=== PATIENT | female | born 1960 | race Caucasian/White ===

== ENCOUNTER 2021-12-25 20:13 | Emergency (ER) | payer OTHER ==
[2021-12-25 20:17] VITALS: BP 157/82; PULSE 74; RESP 18; TEMP 97.5; BMI 27.7
[2021-12-25] MEDS ORDERED: DIPHTH,PERTUSS(ACELL),TET 0.5 ML DISP.SYRIN IM ONE ×2 (21:13→21:16)
[2021-12-25] MEDS ORDERED: metroNIDAZOLE 500 MG TABLET PO ONE (21:13)
[2021-12-25] MEDS ORDERED: DOXYCYCLINE HYCLATE 100 MG CAPSULE PO ONE ×2 (21:13→21:16)
[2021-12-25] MEDS ORDERED: metroNIDAZOLE 250 MG TABLET ONE (21:16)
== END 2021-12-25 21:25 | disposition home or self-care (01) ==
LOC: JERFT 20:13 → JER 20:13 → JERFT 21:25
PROC: 3E0234Z Introduction of Serum, Toxoid and Vaccine into Muscle, Percutaneous Approach (ICD-10-PCS; principal; 2021-12-25)
DX: S91.052A Open bite, left ankle, initial encounter (principal); W54.0XXA Bitten by dog, initial encounter
CPT/HCPCS: 90471; 90715; 99283-25

== ENCOUNTER 2022-11-29 10:11 | Emergency (ER) | payer OTHER ==
[2022-11-29 10:22] VITALS: BP 131/75; PULSE 90; RESP 20; TEMP 98; BMI 27.8
[2022-11-29] MEDS ORDERED: CEFTRIAXONE 2,000 MG in DEXTROSE 5%-WATER - 50 ML IVPB ONE (11:26)
[2022-11-29] MEDS ORDERED: metroNIDAZOLE 500 MG TABLET PO ONE (11:27)
[2022-11-29] MEDS ORDERED: ACETAMINOPHEN 500 MG TABLET (FP) PO ONE (11:27)
[2022-11-29 11:37] LABS: BASO % 0.8 % (0-2.0); EOS % 1.5 % (0-4.5); HEMATOCRIT 38.8 % (32.4-45.2); HEMOGLOBIN 13.8 GM/dL (10.7-15.3); LYMPH % 24.5 % (8-40); MCH 30.4 pg (25.7-33.7); MCHC 35.5 g/dl (32.0-36.0); MEAN CELL VOLUME 85.7 fl (80-96); MEAN PLT VOLUME 8.3 fl (7.5-11.1); MONO % 7.4 % (3.8-10.2); NEUT % 65.8 % (42.8-82.8); PLATELET COUNT 302 10^3/uL (134-434); RBC 4.53 M/mm3 (3.60-5.2); RDW 13.5 % (11.6-15.6); WHITE BLOOD COUNT 8.6 K/mm3 (4.0-10.0)
[2022-11-29] MEDS ORDERED: metroNIDAZOLE 250 MG TABLET ONE (11:40)
[2022-11-29] MEDS ORDERED: ACETAMINOPHEN INJECTION 100 ML IVPB ONE (11:40)
[2022-11-29] MEDS ORDERED: CEFTRIAXONE 2 GM/100 ML BAG IVPB ONE (11:41)
[2022-11-29 11:53] LABS: POTASSIUM 4.8 mmol/L (3.5-5.1)
[2022-11-29 11:55] LABS: ALBUMIN 4.1 g/dl (3.4-5.0); CALCIUM 9.4 mg/dL (8.5-10.1)
[2022-11-29 11:59] LABS: CREATININE 0.7 mg/dL (0.55-1.3)
[2022-11-29 12:00] LABS: BILIRUBIN,TOTAL 0.8 mg/dL (0.2-1); TOT PROT 7.7 g/dl (6.4-8.2)
== END 2022-11-29 16:00 | disposition short-term general hospital (02) ==
LOC: JER 10:11
DX: K08.89 Other specified disorders of teeth and supporting structures (principal); R22.0 Localized swelling, mass and lump, head; K04.6 Periapical abscess with sinus
CPT/HCPCS: 36415; 70487-TC; 80053; 85025; 96365; 99285-25; Q9967